=== PATIENT | female | born 1965 | race Caucasian/White ===

== ENCOUNTER → 2021-03-02 | Outpatient (CLI) | payer OTHER | LOC: KOH-I 14:43 | DX: R06.02 Shortness of breath (principal) | CPT/HCPCS: 71046 ==

== ENCOUNTER → 2021-03-20 | Outpatient (CLI) | payer OTHER | LOC: HEART 5 10:31 | DX: R07.9 Chest pain, unspecified (principal); R06.02 Shortness of breath; I08.1 Rheumatic disorders of both mitral and tricuspid valves | CPT/HCPCS: 93306 ==

== ENCOUNTER → 2021-03-23 | Outpatient (CLI) | payer OTHER ==
[2021-03-23 12:09] LABS: WBC (AUTOMATED 1 10^3 (0-5)
[2021-03-23 12:10] LABS: RBC (AUTOMATED) 200 10^6 (0); RBC (AUTOMATED) 400 10^6 (0); WBC (AUTOMATED 1 10^3 (0-5)
[2021-03-23 12:19] LABS: GLUCOSE,CSF 58 mg/dL (50-80); TOTAL PROTEIN,CSF 43 mg/dL (20-45)
[2021-03-23 12:24] LABS: HEMOGLOBIN 13.1 gm/dl (12.3-15.3); RED BLOOD COUNT 4.25 M/UL (4.00-5.10); WHITE BLOOD COUNT 4.5 K/UL (4.5-11.0)
[2021-03-23 12:36] LABS: BUN/CREATININE RATIO 21 (0-10)
[2021-03-25 14:20] LABS: TREPONEMA PALLIDUM ANTIBODIES Non Reactive (Non Reactive)
[2021-03-25 15:20] LABS: EBV AB VCA, IGM <36.0 U/mL (0.0-35.9); EBV NUCLEAR ANTIGEN AB, IGG >600.0 U/mL (0.0-17.9)
[2021-03-25 16:20] LABS: T-TRANSGLUTAMINASE (TTG) IGA <2 U/mL (0-3)
[2021-03-27 17:10] LABS: MYELIN BASIC PROTEIN, CSF 5.1 ng/mL (0.0-3.7)
[2021-03-28 15:48] LABS: CSF IGG INDEX 4.3 (0.0-0.7); IMMUNOGLOBULIN G, QN, SERUM 711 mg/dL (586-1602)
[2021-03-29 14:15] LABS: VITAMIN E(ALPHA TOCOPHEROL) 14.3 mg/L (7.0-25.1); VITAMIN E(GAMMA TOCOPHEROL) 1.6 mg/L (0.5-5.5)
== END ==
LOC: RAD 10:00
PROVIDERS: Psychiatry & Neurology Neurology
DX: G35 Multiple sclerosis (principal)
CPT/HCPCS: 80053; 82040; 82607; 82746; 82784; 82945; 83036; 83516; 83873; 83916; 83921; 84157; 84207; 84425; 84439; 84443; 84446; 85025; 85652; 86038; 86140; 86780; 87015; 87070; 87116; 87205; 87210; 89051

== ENCOUNTER 2021-03-26 08:55 | Emergency (ER) | payer OTHER ==
[2021-03-26 09:54] LABS: HEMOGLOBIN 14.9 gm/dl (12.3-15.3)
[2021-03-26 09:57] LABS: RED BLOOD COUNT 4.78 M/UL (4.00-5.10)
[2021-03-26 10:15] LABS: BUN/CREATININE RATIO 15 (0-10)
== END 2021-03-26 12:45 | disposition home or self-care (01) ==
LOC: ER1 08:55
PROVIDERS: Emergency Medicine
DX: G97.1 Other reaction to spinal and lumbar puncture (principal); Z90.89 Acquired absence of other organs
CPT/HCPCS: 80053; 85025; 85610; 85730; 96374; 96375; 99284; J2270; J2405; J7030

== ENCOUNTER → 2021-05-11 | Outpatient (CLI) | payer OTHER | LOC: KOH-I 05-09 08:00 | DX: R10.9 Unspecified abdominal pain (principal) | CPT/HCPCS: 76700 ==

== ENCOUNTER → 2021-05-22 | Outpatient (CLI) | payer OTHER | LOC: EMI 13:41 | DX: G35 Multiple sclerosis (principal) | CPT/HCPCS: 70553; A9577 ==

== ENCOUNTER → 2021-07-20 | Outpatient (CLI) | payer OTHER ==
[2021-07-21 09:14] LABS: VITAMIN D, 25-HYDROXY 40.8 ng/mL (30.0-100.0)
[2021-07-21 12:14] LABS: RHEUMATOID ARTHRITIS FACTOR <10.0 IU/mL (0.0-13.9)
== END ==
LOC: RAD 09:49
PROVIDERS: Nurse Practitioner Family
DX: M25.552 Pain in left hip (principal); D89.9 Disorder involving the immune mechanism, unspecified; R76.8 Other specified abnormal immunological findings in serum; M79.10 Myalgia, unspecified site
CPT/HCPCS: 36415; 73502; 82550; 82728; 83520; 85652; 86140; 86200; 86431

== ENCOUNTER → 2021-09-13 | Outpatient (CLI) | payer OTHER | LOC: HEART 5 13:30 | DX: R00.2 Palpitations (principal); R60.9 Edema, unspecified; M79.606 Pain in leg, unspecified ==

== ENCOUNTER → 2022-01-23 | Outpatient (CLI) | payer OTHER | LOC: KOH-I 01-18 13:30 | DX: E04.1 Nontoxic single thyroid nodule (principal); E03.1 Congenital hypothyroidism without goiter | CPT/HCPCS: 76536 ==

== ENCOUNTER → 2022-01-29 | Outpatient (CLI) | payer OTHER | LOC: KOH-I 16:17 | DX: M79.671 Pain in right foot (principal) | CPT/HCPCS: 73630 ==

== ENCOUNTER → 2022-03-16 | Outpatient (CLI) | payer OTHER | LOC: US 02-08 10:30 | DX: R10.13 Epigastric pain (principal); N28.1 Cyst of kidney, acquired | CPT/HCPCS: 76700 ==

== ENCOUNTER 2022-04-27 15:10 | Emergency (ER) | payer OTHER ==
[2022-04-27 17:35] LABS: HEMOGLOBIN 14.4 gm/dl (12.3-15.3); RED BLOOD COUNT 4.67 M/UL (4.00-5.10); WHITE BLOOD COUNT 6.5 K/UL (4.5-11.0)
[2022-04-27 18:30] LABS: BUN/CREATININE RATIO 20 (0-10)
[2022-04-27] MEDS ORDERED: PLAVIX 75 MG TA75 MG PO (19:26)
== END 2022-04-27 19:22 | disposition left against medical advice (07) ==
LOC: ER1 15:10
PROVIDERS: Physician Assistant
DX: R51.9 Headache, unspecified (principal); Z88.1 Allergy status to other antibiotic agents; Z87.891 Personal history of nicotine dependence; Z90.89 Acquired absence of other organs
CPT/HCPCS: 70450; 71045; 80053; 81001; 82550; 82553; 83605; 84484; 85025; 87086; 99283

== ENCOUNTER 2022-05-24 21:23 | Emergency (ER) | payer OTHER ==
[~2022-05-24 21:23] MED LIST: PLAVIX 75 MG TA75 MG PO
[2022-05-24 22:17] LABS: HEMOGLOBIN 14.5 gm/dl (12.3-15.3); RED BLOOD COUNT 4.83 M/UL (4.00-5.10); WHITE BLOOD COUNT 6.3 K/UL (4.5-11.0)
[2022-05-24 22:35] LABS: BUN/CREATININE RATIO 19 (0-10)
[2022-05-25] MEDS ORDERED: BACTROBAN OINT22 GM TOP (04:21)
== END 2022-05-25 04:38 | disposition home or self-care (01) ==
LOC: ER1 21:23
PROVIDERS: Physician Assistant
DX: R21 Rash and other nonspecific skin eruption (principal); M54.50 Low back pain, unspecified; I51.9 Heart disease, unspecified; Z91.040 Latex allergy status; Z88.1 Allergy status to other antibiotic agents
CPT/HCPCS: 80053; 81001; 85025; 85652; 86140; 87086; 99283